=== PATIENT | female | born 1980 ===

== ENCOUNTER 2020-06-14 12:09 | Outpatient (REF) | payer OTHER, SELFPAY ==
[2020-06-15 07:19] LABS: COVID-19 Test Negative (Negative); IDNOW Serial# 55D5AD1C
== END 2020-06-14 12:10 | disposition home or self-care (01) ==
LOC: HO.EMPCOV 12:09
PROVIDERS: Visit Provider Internal Medicine
DX: Z11.52 Encounter for screening for COVID-19 (principal)
CPT/HCPCS: 36415; 87635; C9803

== ENCOUNTER → 2020-06-24 10:40 | Outpatient (BNVA) | payer OTHER, SELFPAY | PROVIDERS: PCP Physician Assistant; Visit Provider Physician Assistant ==

== ENCOUNTER 2020-07-01 09:02 | Outpatient (REF) | payer OTHER, SELFPAY ==
[2020-07-01 09:37] LABS: Hematocrit 39.6 % (37-47); Hemoglobin 12.9 g/dl (12.0-16.0); Mean Corpuscular HGB Conc 32.6 g/dl (31.0-35.0); Mean Corpuscular Hemoglobin 27.6 pg (27.0-33.0); Mean Corpuscular Volume 84.6 fL (80-98); Mean Platelet Volume 10.1 fL (9.4-12.3); Platelet Count 289 X10*3/uL (160-400); Red Blood Count 4.68 X10*6/uL (4.20-5.50); Red Cell Distribution Width 13.9 % (11.0-16.0); White Blood Count 7.9 X10*3/uL (4.8-10.8)
[2020-07-01 09:50] LABS: Alanine Aminotransferase 12 U/L (0-31); Albumin Level 4.1 g/dL (3.5-5.0); Alkaline Phosphatase 72 U/L (39-117); Anion Gap 13 (12-20); Aspartate Amino Transferase 9 U/L (5-31); Bilirubin Total 0.6 mg/dL (0.0-1.0); Blood Urea Nitrogen 9 mg/dL (9-16); Calcium 9.2 mg/dL (8.4-10.2); Carbon Dioxide 25 mmol/L (22-29); Chloride 108 mmol/L (96-108); Cholesterol 149 mg/dL; Estimated Glomerular Filt Rate > 60; Glucose Fasting 97 mg/dL (60-99); HDL Cholesterol 50 mg/dL; Iron 68 mcg/dL (30-160); LDL Cholesterol Calculated 87 mg/dl; Percent Iron Saturation 17 % (15-50); Potassium 4.5 mmol/L (3.3-5.1); Rheumatoid Factor < 15.0 IU/mL (<15.0); Sodium 141 mmol/L (135-145); Total Iron Binding Capacity 389 mcg/dL (228-428); Triglycerides 64 mg/dL; Unsaturated Iron Binding 321 ug/dL
[2020-07-01 09:58] LABS: Estimated Average Glucose 105 mg/dL; Hemoglobin A1c % 5.3 %
[2020-07-01 10:14] LABS: Vitamin D 25-OH Total 8.8 ng/mL (>30)
[2020-07-03 13:21] LABS: Anti Nuclear Antibody Screen NEGATIVE (NEGATIVE)
[2020-07-06 17:52] LABS: Testosterone, Free 5.2 pg/mL (0.1-6.4); Testosterone, Total 38 ng/dL (2-45)
[2020-07-07 14:16] LABS: Estradiol, Ultrasensitive 213 pg/mL
[2020-07-07 17:06] LABS: Estrogen 680.4 pg/mL
== END 2020-07-01 09:03 | disposition home or self-care (01) ==
LOC: HO.LAB 09:02
PROVIDERS: Visit Provider Physician Assistant
DX: Z13.220 Encounter for screening for lipoid disorders (principal); Z13.29 Encounter for screening for other suspected endocrine disorder; L68.0 Hirsutism; E66.9 Obesity, unspecified; I10 Essential (primary) hypertension; D50.9 Iron deficiency anemia, unspecified; Z83.2 Family history of diseases of the blood and blood-forming organs and certain disorders involving the immune mechanism
CPT/HCPCS: 36415; 80053; 80061; 82306; 82670; 82672; 82681; 83001; 83002; 83036; 83540; 84402; 84403; 84443; 85027; 86038; 86039; 86431

== ENCOUNTER 2020-08-22 10:27 | Outpatient (REF) | payer OTHER, SELFPAY ==
--- NOTE | ~2020-08-22 | US_ITS ---
EXAMINATION: US THYROID CLINICAL INFORMATION: Nontoxic single thyroid nodule. COMPARISON: Ultrasound thyroid soft tissue 10/05/2016. TECHNIQUE: Linear transducer guzman-scale and color Doppler examination with attention to the region of the thyroid. FINDINGS: SIZE: Measurements of the thyroid lobes and nodules are given in sagittal, anteroposterior and transverse dimensions respectively. Right Thyroid Lobe: 6.3 x 2.3 x 2.3 cm, volume 17.3 mL. Previously 4.8 x 2.1 x 2.3 cm, volume 12.1 mL. Parenchyma: The gland echotexture is heterogeneous. Thyroid vascularity is normal. Left Thyroid Lobe: 6.0 x 1.7 x 2.3 cm, volume 12.1 mL. Previously 5.3 x 1.9 x 2.0 cm, volume 10.3 mL. Parenchyma: The gland echotexture is heterogeneous. Thyroid vascularity is normal. Isthmus: 0.4 cm in maximum AP dimension. Previously 0.6 cm. Estimated total number of nodules greater than or equal to 1 cm: 0. Reconditioning Associate nodules are described as follows: 1. Location: Right inferior. Size: 0.5 x 0.4 x 0.3 cm, volume 0.03 mL. Previously: 0.5 x 0.5 x 0.4 cm, volume 0.05 mL. Nodule characteristics: Composition: Cystic(0). ACR TI-RADS total points: 0 ACR TI-RADS category: 1 Significant change in size (>/= 20% in 2 dimensions and minimal increase of 2 mm or 50% or greater increase in volume): Change in features: Change in ACR TI-RADS risk category: n/a 2. Location: Right inferior. Size: 0.4 x 0.4 x 0.4 cm, volume 0.03 mL. Previously: 0.4 x 0.5 x 0.4 cm, volume 0.04 mL. Nodule characteristics: Composition: Cystic(0). ACR TI-RADS total points: 0 ACR TI-RADS category: 1 Significant change in size (>/= 20% in 2 dimensions and minimal increase of 2 mm or 50% or greater increase in volume): Change in features: Change in ACR TI-RADS risk category: n/a 3. Location: Right inferior. Size: 0.4 x 0.4 x 0.2 cm, volume 0.03 mL. Previously: 0.3 x 0.3 x 0.3 cm, volume 0.01 mL. Nodule characteristics: Composition: Cystic(0). ACR TI-RADS total points: 0 ACR TI-RADS category: 1 Significant change in size (>/= 20% in 2 dimensions and minimal increase of 2 mm or 50% or greater increase in volume): Change in features: Change in ACR TI-RADS risk category: n/a 4. Location: Left mid Size: 0.4 x 0.4 x 0.3 cm, volume 0.03 mL. Previously: 1.2 x 0.6 x 1.0 cm, volume 0.04 mL. Nodule characteristics: Composition: Cystic(0). ACR TI-RADS total points: 0 ACR TI-RADS category: 1 Significant change in size (>/= 20% in 2 dimensions and minimal increase of 2 mm or 50% or greater increase in volume): Change in features: Change in ACR TI-RADS risk category: n/a 5. Location: Left superior. Size: 0.3 x 0.3 x 0.2 cm, volume 0.009 mL. Previously: n/a. Nodule characteristics: Composition: Cystic(0). ACR TI-RADS total points: 0 ACR TI-RADS category: 1 NODES: No lymphadenopathy is seen in the tissue surrounding the thyroid gland. US/US thyroid IMPRESSION: Enlarged heterogeneous thyroid gland with multiple small bilateral nodules. These do not meet ultrasound criteria for fine-needle aspiration or follow-up.. ACR TI-RADS RECOMMENDATION REFERENCE: Ultrasound-guided fine-needle aspiration, followup ultrasound, no further follow up. * TR1 (0 point) and TR 2 (2 points): No FNA or follow up * TR3 (3 points): FNA if more than or equal to 2.5 cm in maximum dimension, followup ultrasound in 1, 3 and 5 years if 1.5 to 2.4 cm in maximum dimension. * TR4 (4-6 points): FNA if more than or equal to 1.5 cm in maximum dimension, followup ultrasound in 1, 2, 3 and 5 years if 1 to 1.4 cm in maximum dimension. * TR5 (more than or equal to 7 points): FNA if more than or equal to 1 cm in maximum dimension, followup ultrasound every year for 5 years if 0.5 to 0.9 cm in maximum dimension. * TR3, TR4 or TR5 nodules that are below the size threshold for follow up receive no follow up.
--- NOTE | ~2020-08-22 | XR_ITS ---
EXAMINATION: XR KNEE, RIGHT XR KNEE, LEFT CLINICAL INFORMATION: Pain. COMPARISON: None TECHNIQUE: AP, lateral, and sunrise views of the right and left knee. FINDINGS: RIGHT KNEE: No acute fracture or dislocation. No joint space narrowing or marginal osteophytes. No osseous erosion. No abnormal soft tissue calcification. No significant joint effusion. LEFT KNEE: No acute fracture or dislocation. No significant joint space narrowing. Tiny patellofemoral marginal osteophytes. No osseous erosion. No abnormal soft tissue calcification. No significant joint effusion. XR/XR knee LT 3V IMPRESSION: Right knee: Unremarkable examination. Left knee: Minimal patellofemoral arthrosis.
--- NOTE | ~2020-08-22 | XR_ITS ---
EXAMINATION: XR KNEE, RIGHT XR KNEE, LEFT CLINICAL INFORMATION: Pain. COMPARISON: None TECHNIQUE: AP, lateral, and sunrise views of the right and left knee. FINDINGS: RIGHT KNEE: No acute fracture or dislocation. No joint space narrowing or marginal osteophytes. No osseous erosion. No abnormal soft tissue calcification. No significant joint effusion. LEFT KNEE: No acute fracture or dislocation. No significant joint space narrowing. Tiny patellofemoral marginal osteophytes. No osseous erosion. No abnormal soft tissue calcification. No significant joint effusion. XR/XR knee RT 3V IMPRESSION: Right knee: Unremarkable examination. Left knee: Minimal patellofemoral arthrosis.
== END 2020-08-22 10:28 | disposition home or self-care (01) ==
LOC: HO.US 10:27
PROVIDERS: Visit Provider Physician Assistant
DX: E04.1 Nontoxic single thyroid nodule (principal); M25.562 Pain in left knee; M25.561 Pain in right knee
CPT/HCPCS: 73562; 76536

== ENCOUNTER → 2020-08-23 08:53 | Outpatient (BNVA) | payer OTHER, SELFPAY | PROVIDERS: PCP Physician Assistant; Visit Provider Internal Medicine Endocrinology, Diabetes & Metabolism ==

== ENCOUNTER 2020-08-24 09:01 | Outpatient (REF) | payer OTHER, SELFPAY | END 2020-08-24 09:02 | disposition home or self-care (01) | LOC: HO.LAB 09:01 | PROVIDERS: PCP Physician Assistant; Visit Provider Internal Medicine Endocrinology, Diabetes & Metabolism | DX: Z13.89 Encounter for screening for other disorder (principal) ==

== ENCOUNTER 2020-08-26 08:36 | Outpatient (REF) | payer OTHER, SELFPAY ==
[2020-08-26 10:08] LABS: Free T4 (Free Thyroxine) 0.93 ng/dL (0.71-1.85); Thyroid Stimulating Hormone 0.81 uIU/mL (0.32-4.0)
[2020-08-29 13:12] LABS: IGF-1 (Somatomedin C) 155 ng/mL (53-331); IGF-1 Z Score (Female) 0.2 SD (-2.0 - +2.0)
[2020-08-29 14:52] LABS: Thyroglobulin Antibodies 432 IU/mL (< or = 1); Thyroid Peroxidase Antibodies 1 IU/mL (<9)
[2020-08-29 22:06] LABS: Adrenocorticotropic Hormone 12 pg/mL (6-50)
[2020-08-30 18:11] LABS: Prolactin 10.7 ng/mL
[2020-08-30 18:56] LABS: DHEA Sulfate 89 mcg/dL (23-266); Sex Hormone Binding Globulin 27 nmol/L (17-124)
[2020-08-31 22:27] LABS: Androstenedione 166 ng/dL
[2020-09-02 18:31] LABS: Testosterone, Free 3.4 pg/mL (0.1-6.4); Testosterone, Total 22 ng/dL (2-45)
[2020-09-02 20:56] LABS: 11-Deoxycortisol, LC/MS 21 ng/dL
== END 2020-08-26 08:37 | disposition home or self-care (01) ==
LOC: HO.LAB 08:36
PROVIDERS: PCP Physician Assistant; Visit Provider Internal Medicine Endocrinology, Diabetes & Metabolism
DX: E04.2 Nontoxic multinodular goiter (principal); L68.0 Hirsutism
CPT/HCPCS: 36415; 82024; 82157; 82533; 82627; 82634; 82672; 83498; 84146; 84270; 84305; 84402; 84403; 84439; 84443; 86376; 86800

== ENCOUNTER 2020-09-07 07:33 | Outpatient (REF) | payer OTHER, SELFPAY ==
[2020-09-08 22:41] LABS: Adrenocorticotropic Hormone <5 pg/mL (6-50)
[2020-09-14 12:03] LABS: Dexamethasone 214 ng/dL
== END 2020-09-07 07:34 | disposition home or self-care (01) ==
LOC: HO.LAB 07:33
PROVIDERS: PCP Physician Assistant; Visit Provider Internal Medicine Endocrinology, Diabetes & Metabolism
DX: L68.0 Hirsutism (principal)
CPT/HCPCS: 36415; 80299; 82024; 82533

== ENCOUNTER 2020-09-08 23:00 | Outpatient (REF) | payer OTHER, SELFPAY ==
[2020-09-17 16:12] LABS: Saliva Cortisol <0.03 mcg/dL
== END 2020-09-08 23:01 | disposition home or self-care (01) ==
LOC: HO.LNP 23:00
PROVIDERS: Visit Provider Internal Medicine Endocrinology, Diabetes & Metabolism
DX: E66.9 Obesity, unspecified (principal); E04.1 Nontoxic single thyroid nodule; K21.9 Gastro-esophageal reflux disease without esophagitis; L68.0 Hirsutism
CPT/HCPCS: 82530

== ENCOUNTER → 2021-02-13 09:26 | Outpatient (BNVA) | payer OTHER, SELFPAY | PROVIDERS: PCP Physician Assistant; Visit Provider Internal Medicine ==

== ENCOUNTER 2021-02-14 06:50 | Outpatient (REF) | payer OTHER, SELFPAY ==
[2021-02-14 08:37] LABS: Glucose Fasting 101 mg/dL (60-99)
[2021-02-14 08:40] LABS: Alanine Aminotransferase 12 U/L (0-31); Albumin Level 4.1 g/dL (3.5-5.0); Alkaline Phosphatase 68 U/L (39-117); Anion Gap 11 (12-20); Aspartate Amino Transferase 11 U/L (5-31); Bilirubin Total 0.4 mg/dL (0.0-1.0); Blood Urea Nitrogen 9 mg/dL (9-16); Calcium 9.3 mg/dL (8.4-10.2); Carbon Dioxide 25 mmol/L (22-29); Chloride 107 mmol/L (96-108); Cholesterol 167 mg/dL; Estimated Glomerular Filt Rate > 60; Glucose Random 102 mg/dL (60-115); HDL Cholesterol 53 mg/dL; LDL Cholesterol Calculated 97 mg/dl; Potassium 4.3 mmol/L (3.3-5.1); Sodium 139 mmol/L (135-145); Total Protein 7.1 g/dL (6.5-8.0); Triglycerides 86 mg/dL
[2021-02-14 08:50] LABS: Estimated Average Glucose 105 mg/dL; Hemoglobin A1c % 5.3 %
[2021-02-14 09:03] LABS: Free T4 (Free Thyroxine) 0.94 ng/dL (0.71-1.85); Thyroid Stimulating Hormone 0.84 uIU/mL (0.32-4.0); Vitamin D 25-OH Total 8.3 ng/mL (>30)
[2021-02-14 09:10] LABS: Glucose 1 Hour 178 mg/dL
[2021-02-14 09:15] LABS: HCG Quantitative < 2 mIU/mL
[2021-02-14 10:30] LABS: Glucose 2 Hour 155 mg/dL
[2021-02-16 02:02] LABS: LDL Cholesterol Direct 100 mg/dL (<100)
[2021-02-16 02:57] LABS: DHEA Sulfate 69 mcg/dL (23-266); Sex Hormone Binding Globulin 27 nmol/L (17-124)
[2021-02-16 17:46] LABS: Follicle Stimulating Hormone 4.3 mIU/mL; Prolactin 9.8 ng/mL
[2021-02-17 00:36] LABS: Estradiol Ultra Sensitive 92 pg/mL
[2021-02-20 18:47] LABS: Testosterone, Free 8.4 pg/mL (0.1-6.4); Testosterone, Total 62 ng/dL (2-45)
[2021-02-20 19:15] LABS: Androstenedione 217 ng/dL
[2021-02-25 22:31] LABS: Estradiol Free 2.54 pg/mL; Estradiol, Ultrasensitive 92 pg/mL
== END 2021-02-14 06:51 | disposition home or self-care (01) ==
LOC: HO.LAB 06:50
PROVIDERS: PCP Physician Assistant; Visit Provider Internal Medicine
DX: L68.0 Hirsutism (principal); E55.9 Vitamin D deficiency, unspecified; E04.2 Nontoxic multinodular goiter
CPT/HCPCS: 36415; 80053; 80061; 82157; 82306; 82627; 82670; 82681; 83001; 83002; 83036; 83498; 83721; 84146; 84270; 84402; 84403; 84439; 84443; 84702

== ENCOUNTER 2021-03-09 09:17 | Outpatient (REF) | payer OTHER, SELFPAY ==
--- NOTE | ~2021-03-09 | CT_ITS ---
EXAMINATION: CT ABDOMEN WITHOUT AND WITH CONTRAST CLINICAL INFORMATION: Ovarian dysfunction COMPARISON: None TECHNIQUE: Contiguous axial thin section helical images of the abdomen were performed before and after the administration of oral contrast and 85 mL of Omnipaque 350 intravenous contrast. The data set was reformatted in the coronal and sagittal planes and reviewed on an independent workstation. This CT examination was performed using dose optimization techniques as appropriate, variously including the following: *Automated exposure control *Adjustment of mA and/or kV according to patient size (this includes techniques or standardized protocols for targeted exams where dose is matched to indication/reason for exam; i.e. extremities or head) *Use of iterative reconstruction technique DLP: 571 mGy-cm FINDINGS: LUNG BASES: Unremarkable LIVER, GALLBLADDER, AND BILIARY TREE: There is a small 5 mm low-attenuation lesion in the right lobe the liver axial image 40 series 6. This is difficult to characterize due to small size. The liver is otherwise unremarkable. The gallbladder is unremarkable. There is no biliary duct dilatation. PANCREAS: Unremarkable SPLEEN: Unremarkable ADRENAL GLANDS AND KIDNEYS: Unremarkable BOWEL LOOPS: Unremarkable LYMPH NODES: Normal. VASCULAR: Unremarkable. BONES: Unremarkable CT/CT abdomen wo/w con IMPRESSION: Normal-appearing adrenal glands. Small 5 mm low-attenuation lesion in the liver. This is difficult to characterize due to small size. Fleischner guidelines were followed.
[2021-03-09] MEDS: iohexoL 350 MG/ML 100 ML INFUS..BTL IV (10:41)
== END 2021-03-09 09:18 | disposition home or self-care (01) ==
LOC: HO.CT 09:17
PROVIDERS: Visit Provider Internal Medicine
DX: E28.8 Other ovarian dysfunction (principal)
CPT/HCPCS: 74170; Q9967

== ENCOUNTER 2021-03-17 08:49 | Outpatient (REF) | payer OTHER, SELFPAY ==
[2021-03-21 08:52] LABS: Transglutaminase Ab IgG <1.0 U/mL; Transglutaminase IgA <1.0 U/mL
[2021-09-14 09:16] LABS: Prometheus IBD SGI SEE SEPARATE REPORT
== END 2021-03-17 08:50 | disposition home or self-care (01) ==
LOC: HO.LAB 08:49
PROVIDERS: PCP Internal Medicine; Referring Provider Internal Medicine; Visit Provider Nurse Practitioner Family
DX: R10.11 Right upper quadrant pain (principal); R14.0 Abdominal distension (gaseous); K58.9 Irritable bowel syndrome, unspecified; K21.9 Gastro-esophageal reflux disease without esophagitis; R16.0 Hepatomegaly, not elsewhere classified
CPT/HCPCS: 36415; 81479; 82397; 83516; 83520; 86140; 88346; 88350

== ENCOUNTER 2021-04-11 08:01 | Outpatient (REF) | payer OTHER, SELFPAY | END 2021-04-11 08:02 | disposition home or self-care (01) | LOC: HO.LAB 08:01 | PROVIDERS: Visit Provider Internal Medicine | DX: Z13.89 Encounter for screening for other disorder (principal) ==

== ENCOUNTER → 2021-05-17 07:51 | Outpatient (BNVA) | payer OTHER, SELFPAY | PROVIDERS: PCP Internal Medicine; Visit Provider Internal Medicine ==

== ENCOUNTER 2021-06-01 08:03 | Outpatient (REF) | payer OTHER, SELFPAY ==
[2021-06-02 22:46] LABS: Cortisol 60 Minute 32.5 mcg/dL
== END 2021-06-01 08:04 | disposition home or self-care (01) ==
LOC: HO.MDS 08:03
PROVIDERS: PCP Internal Medicine; Visit Provider Internal Medicine
DX: E25.0 Congenital adrenogenital disorders associated with enzyme deficiency (principal)
CPT/HCPCS: 36415; 82533; 83498; 96374; J0834

== ENCOUNTER → 2021-08-28 13:15 | Outpatient (BNVA) | payer OTHER, SELFPAY | PROVIDERS: PCP Internal Medicine; Visit Provider Internal Medicine | DX: E28.8 Other ovarian dysfunction (principal) ==

== ENCOUNTER 2021-08-30 07:13 | Outpatient (REF) | payer OTHER, SELFPAY ==
[2021-08-30 08:04] LABS: Alanine Aminotransferase 8 U/L (0-31); Albumin Level 3.7 g/dL (3.5-5.0); Alkaline Phosphatase 57 U/L (39-117); Anion Gap 10 (12-20); Aspartate Amino Transferase 10 U/L (5-31); Bilirubin Total 0.4 mg/dL (0.0-1.0); Blood Urea Nitrogen 11 mg/dL (9-16); Calcium 9.4 mg/dL (8.4-10.2); Carbon Dioxide 27 mmol/L (22-29); Chloride 106 mmol/L (96-108); Estimated Glomerular Filt Rate > 60; Glucose Fasting 101 mg/dL (60-99); Potassium 4.6 mmol/L (3.3-5.1); Sodium 138 mmol/L (135-145); Total Protein 6.8 g/dL (6.5-8.0)
[2021-08-30 08:26] LABS: Free T4 (Free Thyroxine) 0.95 ng/dL (0.71-1.85); Thyroid Stimulating Hormone 0.84 uIU/mL (0.32-4.0); Vitamin D 25-OH Total 19.7 ng/mL (>30)
[2021-08-30 08:30] LABS: Cortisol Random 18.1 ug/dL
[2021-08-31 21:46] LABS: Adrenocorticotropic Hormone 7 pg/mL (6-50)
[2021-09-01 01:26] LABS: DHEA Sulfate 71 mcg/dL (19-237)
[2021-09-01 01:53] LABS: Sex Hormone Binding Globulin 161 nmol/L (17-124)
[2021-09-03 16:12] LABS: Testosterone, Free 1.2 pg/mL (0.1-6.4); Testosterone, Total 21 ng/dL (2-45)
== END 2021-08-30 07:14 | disposition home or self-care (01) ==
LOC: HO.LAB 07:13
PROVIDERS: PCP Internal Medicine; Visit Provider Internal Medicine
DX: E55.9 Vitamin D deficiency, unspecified (principal); E28.8 Other ovarian dysfunction
CPT/HCPCS: 36415; 80053; 82024; 82306; 82533; 82627; 84270; 84402; 84403; 84439; 84443

== ENCOUNTER 2021-10-10 07:11 | Outpatient (REF) | payer OTHER, SELFPAY ==
[2021-10-10 08:25] LABS: Alanine Aminotransferase 8 U/L (0-31); Albumin Level 3.8 g/dL (3.5-5.0); Alkaline Phosphatase 59 U/L (39-117); Anion Gap 10 (12-20); Aspartate Amino Transferase 11 U/L (5-31); Bilirubin Total 0.4 mg/dL (0.0-1.0); Blood Urea Nitrogen 11 mg/dL (9-16); Carbon Dioxide 26 mmol/L (22-29); Chloride 108 mmol/L (96-108); Cholesterol 164 mg/dL; Estimated Glomerular Filt Rate > 60; Glucose Fasting 89 mg/dL (60-99); HDL Cholesterol 50 mg/dL; LDL Cholesterol Calculated 84 mg/dl; Potassium 4.3 mmol/L (3.3-5.1); Sodium 140 mmol/L (135-145); Total Protein 6.7 g/dL (6.5-8.0); Triglycerides 153 mg/dL
[2021-10-10 08:41] LABS: Free T4 (Free Thyroxine) 1.07 ng/dL (0.71-1.85); Thyroid Stimulating Hormone 0.42 uIU/mL (0.32-4.0); Vitamin D 25-OH Total 25.5 ng/mL (>30)
[2021-10-10 08:42] LABS: Thyroid Stimulating Hormone 0.45 uIU/mL (0.32-4.0); Vitamin D 25-OH Total 25.1 ng/mL (>30)
== END 2021-10-10 07:12 | disposition home or self-care (01) ==
LOC: HO.LAB 07:11
PROVIDERS: Internal Medicine; PCP Internal Medicine; Visit Provider Internal Medicine
DX: Z00.00 Encounter for general adult medical examination without abnormal findings (principal); E04.2 Nontoxic multinodular goiter; E55.9 Vitamin D deficiency, unspecified; E78.5 Hyperlipidemia, unspecified
CPT/HCPCS: 36415; 80053; 80061; 82306; 84439; 84443

== ENCOUNTER 2021-10-18 07:34 | Outpatient (REF) | payer OTHER, SELFPAY ==
--- NOTE | ~2021-10-18 | MM_ITS ---
EXAMINATION: MM SCREENING DIGITAL BREAST TOMOSYNTHESIS, BILATERAL CLINICAL INFORMATION: Screening. Asymptomatic. The age 41. No prior breast imaging. No known family history breast cancer. The lifetime risk of breast cancer based on the Tyrer-Cuzick Model is 8%. COMPARISON: None (current study represents initial baseline exam). TECHNIQUE: Digital breast tomosynthesis is performed in both the craniocaudal and mediolateral oblique views along with computer-aided detection (CAD). Synthesized 2D images are generated from the tomosynthesis. Additional bilateral views are provided. FINDINGS: The breasts are extremely dense, which lowers the sensitivity of mammography (ACR BI-RADS breast composition Category d). Breast tissue composition borders on heterogeneously dense. There is fibronodular parenchymal pattern. There is no architectural abnormality. No dominant mass on the right. Left breast probable fibrocystic changes with dominant smooth nodularity with obscured margins central breast approximately 4 cm from nipple measuring under 1.3 cm. As this represents baseline exam, patient will be recalled for targeted ultrasound on the left. There are numerous bilateral punctate round benign calcifications within the lesion distributed, greater in number on the left. The axilla and skin contours are unremarkable. MM/MM tomosynthesis screening BI IMPRESSION: Left: -Probable fibrocystic changes with dominant nodule central breast approximately 1.3 cm. Right: -No mammographic evidence of malignancy. ASSESSMENT: BI-RADS 0: Incomplete - Need Additional Imaging Evaluation RECOMMENDATION: 1. Targeted ultrasound left breast. 2. Radiology department staff will contact the patient for additional imaging. This patient's information was entered into a reminder system with a target due date for their next mammogram.
== END 2021-10-18 07:35 | disposition home or self-care (01) ==
LOC: HO.MAMMO 07:34
PROVIDERS: PCP Internal Medicine; Visit Provider Internal Medicine
DX: Z12.31 Encounter for screening mammogram for malignant neoplasm of breast (principal)
CPT/HCPCS: 77063; 77067

== ENCOUNTER 2021-11-07 08:20 | Outpatient (REF) | payer OTHER, SELFPAY ==
--- NOTE | ~2021-11-07 | US_ITS ---
EXAMINATION: US DIAGNOSTIC ULTRASOUND BREAST, LEFT CLINICAL INFORMATION: Probable fibrocystic changes central left breast noted on baseline mammography. COMPARISON: Mammography 10/18/2021. TECHNIQUE: Ultrasound left breast is performed with interrogation from all 4 quadrants. Grayscale imaging and color Doppler are performed without and with harmonics. FINDINGS: There are numerous benign simple cysts distributed throughout the central left breast ranging in size from a few millimeters to 1.7 cm. There is no focal suspicious finding. There is no solid mass, complicated cystic mass, or architectural abnormality. Results are discussed with the patient at time of visit. US/US breast LT limited IMPRESSION: Benign fibrocystic changes left breast numerous simple cysts measuring up to approximately 1.7 cm. ASSESSMENT: BI-RADS 2: Benign RECOMMENDATION: Routine annual mammography screening. This patient's information was entered into a reminder system with a target due date for their next mammogram.
== END 2021-11-07 08:21 | disposition home or self-care (01) ==
LOC: HO.MAMMO 08:20
PROVIDERS: PCP Internal Medicine; Visit Provider Internal Medicine
DX: N63.25 Unspecified lump in the left breast, overlapping quadrants (principal)
CPT/HCPCS: 76642

== ENCOUNTER 2022-01-06 14:35 | Outpatient (REF) | payer BC, SELFPAY ==
[2022-01-06 15:33] LABS: Estimated Average Glucose 100 mg/dL; Hemoglobin A1c % 5.1 %
[2022-01-06 15:35] LABS: Alanine Aminotransferase 13 U/L (0-31); Alkaline Phosphatase 61 U/L (39-117); Anion Gap 14 (12-20); Aspartate Amino Transferase 18 U/L (5-31); Bilirubin Total 0.5 mg/dL (0.0-1.0); Blood Urea Nitrogen 14 mg/dL (9-16); Calcium 8.9 mg/dL (8.4-10.2); Carbon Dioxide 25 mmol/L (22-29); Chloride 108 mmol/L (96-108); Estimated Glomerular Filt Rate > 60; Glucose Random 105 mg/dL (60-115); Potassium 3.6 mmol/L (3.3-5.1); Sodium 143 mmol/L (135-145); Total Protein 6.5 g/dL (6.5-8.0)
[2022-01-06 15:59] LABS: Free T4 (Free Thyroxine) 1.12 ng/dL (0.71-1.85); HCG Quantitative < 2 mIU/mL; Thyroid Stimulating Hormone 0.61 uIU/mL (0.32-4.0)
[2022-01-06 16:17] LABS: Cortisol Random 7.3 ug/dL
[2022-01-06 16:31] LABS: Vitamin D 25-OH Total 15.2 ng/mL (>30)
[2022-01-11 12:06] LABS: Androstenedione 65 ng/dL
[2022-01-11 22:07] LABS: Estradiol Ultra Sensitive 22 pg/mL
[2022-01-12 09:03] LABS: DHEA Sulfate 82 mcg/dL (19-237); Follicle Stimulating Hormone 7.1 mIU/mL; Lutenizing Hormone 6.5 mIU/mL; Prolactin 8.8 ng/mL; Sex Hormone Binding Globulin 27 nmol/L (17-124)
[2022-01-13 18:37] LABS: Testosterone, Free 2.8 pg/mL (0.1-6.4); Testosterone, Total 20 ng/dL (2-45)
== END 2022-01-06 14:36 | disposition home or self-care (01) ==
LOC: HO.HMGCLDS 14:35
PROVIDERS: PCP Internal Medicine; Visit Provider Internal Medicine
DX: E28.8 Other ovarian dysfunction (principal); E04.2 Nontoxic multinodular goiter; E55.9 Vitamin D deficiency, unspecified
CPT/HCPCS: 36415; 80053; 82157; 82306; 82533; 82627; 82670; 83001; 83002; 83036; 83498; 84146; 84270; 84402; 84403; 84439; 84443; 84702

== ENCOUNTER → 2022-06-07 13:07 | Outpatient (BNVA) | payer BC, SELFPAY | PROVIDERS: PCP Pediatrics; Visit Provider Internal Medicine | DX: Z13.89 Encounter for screening for other disorder (principal) ==

== ENCOUNTER 2022-06-16 07:28 | Outpatient (REF) | payer BC, SELFPAY ==
[2022-06-16 08:23] LABS: Estimated Average Glucose 105 mg/dL; Hemoglobin A1c % 5.3 %
[2022-06-16 08:50] LABS: Alanine Aminotransferase 9 U/L (0-31); Alkaline Phosphatase 65 U/L (39-117); Anion Gap 10 (12-20); Aspartate Amino Transferase 11 U/L (5-31); Bilirubin Total 0.5 mg/dL (0.0-1.0); Blood Urea Nitrogen 11 mg/dL (9-16); Calcium 9.2 mg/dL (8.4-10.2); Carbon Dioxide 25 mmol/L (22-29); Chloride 106 mmol/L (96-108); Estimated Glomerular Filt Rate > 60; Glucose Random 96 mg/dL (60-115); Potassium 4.4 mmol/L (3.3-5.1); Sodium 137 mmol/L (135-145); Total Protein 6.9 g/dL (6.5-8.0)
[2022-06-16 08:54] LABS: Cortisol Random 5.1 ug/dL
[2022-06-16 09:15] LABS: Free T4 (Free Thyroxine) 0.93 ng/dL (0.71-1.85); HCG Quantitative < 2 mIU/mL; Thyroid Stimulating Hormone 0.39 uIU/mL (0.32-4.0)
[2022-06-16 09:58] LABS: Vitamin D 25-OH Total 33.4 ng/mL (>30)
[2022-06-18 11:20] LABS: DHEA Sulfate 79 mcg/dL (15-205); Follicle Stimulating Hormone 3.9 mIU/mL; Lutenizing Hormone 9.6 mIU/mL; Prolactin 9.5 ng/mL; Sex Hormone Binding Globulin 32 nmol/L (17-124)
[2022-06-21 14:58] LABS: Androstenedione 182 ng/dL
[2022-06-22 05:09] LABS: Adrenocorticotropic Hormone 8 pg/mL (6-50)
[2022-06-22 15:44] LABS: Testosterone, Free 5.4 pg/mL (0.1-6.4); Testosterone, Total 40 ng/dL (2-45)
[2022-06-23 20:48] LABS: Estradiol Ultra Sensitive 89 pg/mL
== END 2022-06-16 07:29 | disposition home or self-care (01) ==
LOC: HO.LAB 07:28
PROVIDERS: PCP Nurse Practitioner Family; Visit Provider Internal Medicine
DX: R73.02 Impaired glucose tolerance (oral) (principal); E55.9 Vitamin D deficiency, unspecified; E28.8 Other ovarian dysfunction; E28.1 Androgen excess; E04.2 Nontoxic multinodular goiter
CPT/HCPCS: 36415; 80053; 82024; 82157; 82306; 82533; 82627; 82670; 83001; 83002; 83036; 83498; 84146; 84270; 84402; 84403; 84439; 84443; 84702

== ENCOUNTER 2023-04-22 14:23 | Outpatient (AMB) | payer BC, SELFPAY ==
--- NOTE | 2023-04-22 14:30 | A.OFFVIS_ITS ---
Intake Vital Signs 04/22/23 14:33 Height 5 ft 4 in Weight 204 lb 5.896 oz BMI 35.1 BP 120/76 Blood Pressure Location Lt brachial Position Sitting Pulse 98 Pulse Source Pulse Oximeter Intake Visit Reasons: PCOS-confirmed Intake Note: Patient present today for PCOS follow up visit. Last seen 06/07/[address] Lockwood. Foreign Banknote Teller Required: No Accompanied by: Self / Same As Patient Allergies No Known Allergies Allergy (Verified 04/22/23 14:39) Medication List - Last Reconciled 04/22/23 by Zachery Farmer MD cholecalciferol (vitamin D3) 50 mcg PO DAILY 30 days ibuprofen 800 mg PO Q8H PRN omega 3-uvc-cgf-fish oil 60-90-500 mg (Fish Oil) 1 cap PO DAILY HPI HPI Comments History of Present Illness Details 42 YO Female with no significant PMHx who is seen in F/U for hyperandrogenism.. The patient last saw Dr. Lockwood on 06/07/2022 She was previously followed by Dr. Jean and underwent a partial workup. She was ruled out for kayli's disease with a normal 1 mg overnight DSST. Her 17OHP was slightly elevated at >200. She has not had a stim test to rule out NCCAH. She was scheduled for this but it was completed incorrectly, solely as a cosyntropin stim test for cortisol, which was WNL. After her initial visit with me we repeated a full biochemical panel. This revealed elevated both free and total testosterone, and a boerline 17OHP level of 161. She completed another 1 mg overnight DSST which was WNL, ruling out kayli's disease. She had a CT of the abdomen which revealed a 5 mm lesion within the liver, but the adrenal glands appeared WNL. She also had an US of the ovaries, which revealed multiple bilateral follicles, in a picture consistent with PCOS. She had a 2 hour OGTT which revealed prediabetes. She was started on Metformin, but was unable to tolerate this at 500 mg PO BID of the XR tab, due to GI distress. She was switched Ozempic and is currently using 0.5 mg once a week. She does report significant reduction in weight. She saw her DRYING ROOM ATTENDANT and was started on OCP ALYSA, which she reports has normalized her menses. She then stopped this in order to repeat her labs and did not resume this. Menarche was age 15. Menses have been irregular since the of her second son, coming often twice within a 30 day period. Weight gain: Does complain of weight gain. Hirsutism/hyperandrogenism: Complains of hirsutism of the face and areolas. Trying to conceive/clomiphene: Has 2 children and had no difficulty conceiving. 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 TSH has remained WNL off any LT4. She was found to have low Vitamin D. She has completed high dose replacement and remains on Vitamin D 2000 IU daily now. Thyroid US: 08/22/2020 Right Thyroid Lobe: 6.3 x 2.3 x 2.3 cm, volume 17.3 mL. Previously 4.8 x 2.1 x 2.3 cm, volume 12.1 mL. Parenchyma: The gland echotexture is heterogeneous. Thyroid vascularity is normal. Left Thyroid Lobe: 6.0 x 1.7 x 2.3 cm, volume 12.1 mL. Previously 5.3 x 1.9 x 2.0 cm, volume 10.3 mL. Parenchyma: The gland echotexture is heterogeneous. Thyroid vascularity is normal. Isthmus: 0.4 cm in maximum AP dimension. Previously 0.6 cm. Estimated total number of nodules greater than or equal to 1 cm: 0. Strapper Operator nodules are described as follows: 1.? Location: Right inferior. ?? ? Size: 0.5 x 0.4 x 0.3 cm, volume 0.03 mL. ?? ? Previously: 0.5 x 0.5 x 0.4 cm, volume 0.05 mL. ?? ? Nodule characteristics: ?? ? Composition: Cystic(0). ?? ? ACR TI-RADS total points: 0 ?? ? ACR TI-RADS category: 1 ? Significant change in size (>/= 20% in 2 dimensions and minimal increase of 2 mm or 50% or greater increase in volume): ?? ? Change in features: ?? ? Change in ACR TI-RADS risk category: n/a 2.? Location: Right inferior. ?? ? Size: 0.4 x 0.4 x 0.4 cm, volume 0.03 mL. ?? ? Previously: 0.4 x 0.5 x 0.4 cm, volume 0.04 mL. ?? ? Nodule characteristics: ?? ? Composition: Cystic(0). ?? ? ACR TI-RADS total points: 0 ?? ? ACR TI-RADS category: 1 ? Significant change in size (>/= 20% in 2 dimensions and minimal increase of 2 mm or 50% or greater increase in volume): ?? ? Change in features: ?? ? Change in ACR TI-RADS risk category: n/a 3.? Location: Right inferior. ?? ? Size: 0.4 x 0.4 x 0.2 cm, volume 0.03 mL. ?? ? Previously: 0.3 x 0.3 x 0.3 cm, volume 0.01 mL. ?? ? Nodule characteristics: ?? ? Composition: Cystic(0). ?? ? ACR TI-RADS total points: 0 ?? ? ACR TI-RADS category: 1 ? Significant change in size (>/= 20% in 2 dimensions and minimal increase of 2 mm or 50% or greater increase in volume): ?? ? Change in features: ?? ? Change in ACR TI-RADS risk category: n/a 4.? Location: Left mid ?? ? Size: 0.4 x 0.4 x 0.3 cm, volume 0.03 mL. ?? ? Previously: 1.2 x 0.6 x 1.0 cm, volume 0.04 mL. ?? ? Nodule characteristics: ?? ? Composition: Cystic(0). ?? ? ACR TI-RADS total points: 0 ?? ? ACR TI-RADS category: 1 ? Significant change in size (>/= 20% in 2 dimensions and minimal increase of 2 mm or 50% or greater increase in volume): ?? ? Change in features: ?? ? Change in ACR TI-RADS risk category: n/a 5.? Location: Left superior. ?? ? Size: 0.3 x 0.3 x 0.2 cm, volume 0.009 mL. ?? ? Previously: n/a. ?? ? Nodule characteristics: ?? ? Composition: Cystic(0). ?? ? ACR TI-RADS total points: 0 ?? ? ACR TI-RADS category: 1 ?? NODES: No lymphadenopathy is seen in the tissue surrounding the thyroid gland. CT Abdomen: 03/09/2021 FINDINGS: LUNG BASES: Unremarkable? ? LIVER, GALLBLADDER, AND BILIARY TREE: There is a small 5 mm low-attenuation lesion in the right lobe the liver axial image 40 series 6. This is difficult to characterize due to small size. The liver is otherwise unremarkable. The gallbladder is unremarkable. There is no biliary duct dilatation. PANCREAS: Unremarkable? SPLEEN: Unremarkable? ADRENAL GLANDS AND KIDNEYS: Unremarkable BOWEL LOOPS: Unremarkable? LYMPH NODES: Normal. VASCULAR: Unremarkable. BONES: Unremarkable? CT/CT abdomen wo/w con IMPRESSION: Normal-appearing adrenal glands. Small 5 mm low-attenuation lesion in the liver. This is difficult to characterize due to small size.? Labs: Laboratory Tests 06/01/21 08/30/21 10/10/21 08:50 07:29 07:21 Sodium Potassium Creatinine Estimated GFR Hemoglobin A1c % LDL Cholesterol, C alc 84 25-OH Vitamin D To kapil TSH Free T4 Estradiol Ultra MSMS FSH Luteinizing Hormon e Prolactin Total Testosterone 21 Fr Testosterone Di vane 1.2 Sex Hormone Bind G lob 161 H Androstenedione DHEA Sulfate 71 Beta HCG, Quant Random Cortisol 17-Hydroxyprogeste hiwot 39 10/10/21 01/06/22 01/06/22 07:21 14:42 14:42 Sodium 143 Potassium 3.6 Creatinine 0.73 Estimated GFR > 60 Hemoglobin A1c % 5.1 LDL Cholesterol, C alc 25-OH Vitamin D To kapil 25.1 15.2 TSH 0.45 0.61 Free T4 1.10 1.12 Estradiol Ultra LC MSMS FSH Luteinizing Hormon e Prolactin Total Testosterone Fr Testosterone Di vane Sex Hormone Bind G lob Androstenedione DHEA Sulfate Beta HCG, Quant < 2 Random Cortisol 17-Hydroxyprogeste hiwot 01/06/22 01/06/22 14:42 14:42 Sodium Potassium Creatinine Estimated GFR Hemoglobin A1c % LDL Cholesterol, C alc 25-OH Vitamin D To kapil TSH Free T4 Estradiol Ultra LC MSMS 22 FSH 7.1 Luteinizing Hormon e 6.5 Prolactin 8.8 Total Testosterone 20 Fr Testosterone Di vane 2.8 Sex Hormone Bind G lob 27 Androstenedione 65 DHEA Sulfate 82 Beta HCG, Quant Random Cortisol 7.3 17-Hydroxyprogeste hiwot 26 17-0 HP levels were repeated and were <200. There is continued hair growth. Seeing patch worker. Took Ozempic but doesn't want it anymore . Not getting menses . Had normalized with BCP then became abnormal. No plans for . Had tubal ligation ON LICENSE OF [facility] Medical History (Updated 07/19/22 @ 09:22 by Amina Koenig DO) Metabolic syndrome Impaired glucose tolerance Liver mass Hyperandrogenism Vitamin D deficiency Hirsutism Non-toxic multinodular goiter Surgical History Hx of bladder repair surgery History of tonsillectomy and adenoidectomy Hx of tubal ligation Family History Mother Hypertension Depression Diabetes Heart murmur Father Hyperlipidemia Brother No problems noted. Brother No problems noted. Sister No problems noted. 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 She was taking a control pill. Workup for other causes including adrenal, ovarian tumor, CaH was negative Plan is to talk to her wildlife veterinarian about resuming the control pill. Will also have the patient talk to her primary care provider about sending her for sleep study. We also talked about the possible use of spironolactone in the future and I will prescribe Zepbound which may help break the insulin resistance and help with the PCOS. Medications: New tirzepatide (weight loss) (Zepbound) 2.5 mg (0.5 mL) subcut QWEEK 4 weeks 2 mL 5RF tirzepatide (weight loss) (Zepbound) 2.5 mg (0.5 mL) subcut QWEEK 4 weeks 2 mL 0RF Coding Level of Care Code Est Pt Level 3 (98465) Diagnoses Hyperandrogenism E28.8
[2023-04-22 14:33] VITALS: BP 120/76; PULSE 98; BMI 35.1
== END 2023-04-22 15:18 | disposition home or self-care (01) ==
PROVIDERS: PCP Nurse Practitioner Family; Visit Provider Internal Medicine Endocrinology, Diabetes & Metabolism
DX: E28.8 Other ovarian dysfunction (principal)
CPT/HCPCS: 99213

== ENCOUNTER → 2023-04-22 14:23 | Outpatient (BNVA) | payer BC, SELFPAY | PROVIDERS: PCP Nurse Practitioner Family; Visit Provider Internal Medicine Endocrinology, Diabetes & Metabolism ==

== ENCOUNTER 2023-08-21 08:08 | Outpatient (AMB) | payer BC, SELFPAY ==
[2023-08-21 08:09] VITALS: BP 130/82; PULSE 72; BMI 36.1
--- NOTE | 2023-08-21 08:09 | A.OFFVIS_ITS ---
Vital Signs 08/21/23 08:09 Height 5 ft 4 in Weight 210 lb 1.608 oz BMI 36.1 BP 130/82 Blood Pressure Location Lt brachial Position Sitting Pulse 72 Pulse Source Pulse Oximeter Intake Visit Reasons: PCOS-CONFIRMED Intake Note: Patient present today for PCOS follow up visit. 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 She was previously followed by Dr. Jean and underwent a partial workup. She was ruled out for kayli's disease with a normal 1 mg overnight DSST. Her 17OHP was slightly elevated at >200. She has not had a stim test to rule out NCCAH. She was scheduled for this but it was completed incorrectly, solely as a cosyntropin stim test for cortisol, which was WNL. After her initial visit with mi we repeated a full biochemical panel. This revealed elevated both free and total testosterone, and a boerline 17OHP level of 161. She completed another 1 mg overnight DSST which was WNL, ruling out kayli's disease. She had a CT of the abdomen which revealed a 5 mm lesion within the liver, but the adrenal glands appeared WNL. She also had an US of the ovaries, which revealed multiple bilateral follicles, in a picture consistent with PCOS. She had a 2 hour OGTT which revealed prediabetes. She was started on Metformin, but was unable to tolerate this at 500 mg PO BID of the XR tab, due to GI distress. She was switched Ozempic and is currently using 0.5 mg once a week. She does report significant reduction in weight. She saw her DRAPERY ESTIMATOR and was started on OCP ALYSA, which she reports has normalized her menses. She then stopped this in order to repeat her labs and did not resume this. Menarche was age 15. Menses have been irregular since the of her second son, coming often twice within a 30 day period. Weight gain: Does complain of weight gain. Hirsutism/hyperandrogenism: Complains of hirsutism of the face and areolas. Trying to conceive/clomiphene: Has 2 children and had no difficulty conceiving. 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 TSH has remained WNL off any LT4. She was found to have low Vitamin D. She has completed high dose replacement and remains on Vitamin D 2000 IU daily now. Thyroid US: 08/22/2020 Right Thyroid Lobe: 6.3 x 2.3 x 2.3 cm, volume 17.3 mL. Previously 4.8 x 2.1 x 2.3 cm, volume 12.1 mL. Parenchyma: The gland echotexture is heterogeneous. Thyroid vascularity is normal. Left Thyroid Lobe: 6.0 x 1.7 x 2.3 cm, volume 12.1 mL. Previously 5.3 x 1.9 x 2.0 cm, volume 10.3 mL. Parenchyma: The gland echotexture is heterogeneous. Thyroid vascularity is normal. Isthmus: 0.4 cm in maximum AP dimension. Previously 0.6 cm. Estimated total number of nodules greater than or equal to 1 cm: 0. Appliance Service Supervisor nodules are described as follows: 1.? Location: Right inferior. ?? ? Size: 0.5 x 0.4 x 0.3 cm, volume 0.03 mL. ?? ? Previously: 0.5 x 0.5 x 0.4 cm, volume 0.05 mL. ?? ? Nodule characteristics: ?? ? Composition: Cystic(0). ?? ? ACR TI-RADS total points: 0 ?? ? ACR TI-RADS category: 1 ? Significant change in size (>/= 20% in 2 dimensions and minimal increase of 2 mm or 50% or greater increase in volume): ?? ? Change in features: ?? ? Change in ACR TI-RADS risk category: n/a 2.? Location: Right inferior. ?? ? Size: 0.4 x 0.4 x 0.4 cm, volume 0.03 mL. ?? ? Previously: 0.4 x 0.5 x 0.4 cm, volume 0.04 mL. ?? ? Nodule characteristics: ?? ? Composition: Cystic(0). ?? ? ACR TI-RADS total points: 0 ?? ? ACR TI-RADS category: 1 ? Significant change in size (>/= 20% in 2 dimensions and minimal increase of 2 mm or 50% or greater increase in volume): ?? ? Change in features: ?? ? Change in ACR TI-RADS risk category: n/a 3.? Location: Right inferior. ?? ? Size: 0.4 x 0.4 x 0.2 cm, volume 0.03 mL. ?? ? Previously: 0.3 x 0.3 x 0.3 cm, volume 0.01 mL. ?? ? Nodule characteristics: ?? ? Composition: Cystic(0). ?? ? ACR TI-RADS total points: 0 ?? ? ACR TI-RADS category: 1 ? Significant change in size (>/= 20% in 2 dimensions and minimal increase of 2 mm or 50% or greater increase in volume): ?? ? Change in features: ?? ? Change in ACR TI-RADS risk category: n/a 4.? Location: Left mid ?? ? Size: 0.4 x 0.4 x 0.3 cm, volume 0.03 mL. ?? ? Previously: 1.2 x 0.6 x 1.0 cm, volume 0.04 mL. ?? ? Nodule characteristics: ?? ? Composition: Cystic(0). ?? ? ACR TI-RADS total points: 0 ?? ? ACR TI-RADS category: 1 ? Significant change in size (>/= 20% in 2 dimensions and minimal increase of 2 mm or 50% or greater increase in volume): ?? ? Change in features: ?? ? Change in ACR TI-RADS risk category: n/a 5.? Location: Left superior. ?? ? Size: 0.3 x 0.3 x 0.2 cm, volume 0.009 mL. ?? ? Previously: n/a. ?? ? Nodule characteristics: ?? ? Composition: Cystic(0). ?? ? ACR TI-RADS total points: 0 ?? ? ACR TI-RADS category: 1 ?? NODES: No lymphadenopathy is seen in the tissue surrounding the thyroid gland. CT Abdomen: 03/09/2021 FINDINGS: LUNG BASES: Unremarkable? ? LIVER, GALLBLADDER, AND BILIARY TREE: There is a small 5 mm low-attenuation lesion in the right lobe the liver axial image 40 series 6. This is difficult to characterize due to small size. The liver is otherwise unremarkable. The gallbladder is unremarkable. There is no biliary duct dilatation. PANCREAS: Unremarkable? SPLEEN: Unremarkable? ADRENAL GLANDS AND KIDNEYS: Unremarkable BOWEL LOOPS: Unremarkable? LYMPH NODES: Normal. VASCULAR: Unremarkable. BONES: Unremarkable? CT/CT abdomen wo/w con IMPRESSION: Normal-appearing adrenal glands. Small 5 mm low-attenuation lesion in the liver. This is difficult to characterize due to small size.? Labs: Laboratory Tests 06/01/21 08/30/21 10/10/21 08:50 07:29 07:21 Sodium Potassium Creatinine Estimated GFR Hemoglobin A1c % LDL Cholesterol, Calc 84 25-OH Vitamin D Total TSH Free T4 Estradiol Ultra LCMSMS FSH Luteinizing Hormone Prolactin Total Testosterone 21 Fr Testosterone Dialys 1.2 Sex Hormone Bind Glob 161 H Androstenedione DHEA Sulfate 71 Beta HCG, Quant Random Cortisol 17-Hydroxyprogesterone 39 10/10/21 01/06/22 01/06/22 07:21 14:42 14:42 Sodium 143 Potassium 3.6 Creatinine 0.73 Estimated GFR > 60 Hemoglobin A1c % 5.1 LDL Cholesterol, Calc 25-OH Vitamin D Total 25.1 15.2 TSH 0.45 0.61 Free T4 1.10 1.12 Estradiol Ultra LCMSMS FSH Luteinizing Hormone Prolactin Total Testosterone Fr Testosterone Dialys Sex Hormone Bind Glob Androstenedione DHEA Sulfate Beta HCG, Quant < 2 Random Cortisol 17-Hydroxyprogesterone 01/06/22 01/06/22 14:42 14:42 Sodium Potassium Creatinine Estimated GFR Hemoglobin A1c % LDL Cholesterol, Calc 25-OH Vitamin D Total TSH Free T4 Estradiol Ultra LCMSMS 22 FSH 7.1 Luteinizing Hormone 6.5 Prolactin 8.8 Total Testosterone 20 Fr Testosterone Dialys 2.8 Sex Hormone Bind Glob 27 Androstenedione 65 DHEA Sulfate 82 Beta HCG, Quant Random Cortisol 7.3 17-Hydroxyprogesterone 26 17-0 HP levels were repeated and were <200. There is continued hair growth. Seeing bolt man. On Zepbound . Not getting menses . Had normalized with BCP then became abnormal. No plans for . Had tubal ligation . Was placed on control pill. Menses are nl [facility] Medical History Metabolic syndrome Impaired glucose tolerance Liver mass Hyperandrogenism Vitamin D deficiency Hirsutism Non-toxic multinodular goiter Surgical History Hx of bladder repair surgery History of tonsillectomy and adenoidectomy Hx of tubal ligation Family History Mother Hypertension Depression Diabetes Heart murmur Father Hyperlipidemia Brother No problems noted. Brother No problems noted. Sister No problems noted. 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 There are no palpable thyroid nodules Assessment & Plan Assessment & Plan (1) Hyperandrogenism: Code(s): E28.8 - Other ovarian dysfunction Category: Medical Plan: This is a 43-year-old female with a history of polycystic ovarian syndrome. She was taking a control pill. Workup for other causes including adrenal, ovarian tumor, CaH was negative Plan is to start spironolactone 75 mg once a day. Went over side effects of spironolactone including but not limited to gastrointestinal side effects. Will check basic metabolic panel in 10 days. Continue control pill. Patient warned not to get on spironolactone the dangers of doing so to the fetus (2) Thyroid nodule: Code(s): E04.1 - Nontoxic single thyroid nodule Category: Medical Plan: History of multinodular goiter with subcentimeter nodules. Nodules are not warranted follow-up on ultrasound but patient feels more comfortable having repeat ultrasound Will obtain repeat thyroid ultrasound Orders: Orders Basic Metabolic Panel 10 Days E28.8 - Other ovarian dysfunction US thyroid Today E04.2 - Nontoxic multinodular goiter Medications: New tirzepatide (weight loss) (Zepbound) 5 mg (0.5 mL) subcut QWEEK 2 mL 5RF spironolactone (Aldactone) 75 mg (1.5 x 50 mg) PO DAILY 45 tabs 5RF Discontinued semaglutide (weight loss) (Genaro) administer weeks 1 through 4 of therapy Discontinued Reason: Doctor's Order 0.25 mg (0.5 mL) subcut QWEEK 2 mL 5RF Coding Level of Care Code Est Pt Level 3 (89332) Diagnoses Hyperandrogenism E28.8 Thyroid nodule E04.1
== END 2023-08-21 08:57 | disposition home or self-care (01) ==
PROVIDERS: PCP Nurse Practitioner Family; Visit Provider Internal Medicine Endocrinology, Diabetes & Metabolism
DX: E28.8 Other ovarian dysfunction (principal); E04.1 Nontoxic single thyroid nodule
CPT/HCPCS: 99213

== ENCOUNTER → 2023-08-21 08:08 | Outpatient (BNVA) | payer BC, SELFPAY | PROVIDERS: PCP Nurse Practitioner Family; Visit Provider Internal Medicine Endocrinology, Diabetes & Metabolism ==

== ENCOUNTER 2023-08-29 10:27 | Outpatient (REF) | payer BC, SELFPAY ==
--- NOTE | ~2023-08-29 | US_ITS ---
EXAMINATION: US THYROID CLINICAL INFORMATION: Nontoxic multinodular goiter. COMPARISON: Thyroid ultrasound 08/22/2020 and 10/05/2016. TECHNIQUE: Linear transducer grayscale and color Doppler examination with attention to the region of the thyroid. FINDINGS: SIZE: Measurements of the thyroid lobes and nodules are given in sagittal, anteroposterior and transverse dimensions respectively. Right Thyroid Lobe: 6.1 x 2.2 x 3.2 cm, volume 22.1 mL. Previously 6.3 x 2.3 x 2.3 cm, volume 17.3 mL. Parenchyma: The gland echotexture is homogeneous. Thyroid vascularity is normal. Left Thyroid Lobe: 6.2 x 1.4 x 2.2 cm, volume 10.1 mL. Previously 6.0 x 1.7 x 2.3 cm, volume 12.0 mL. Parenchyma: The gland echotexture is homogeneous. Thyroid vascularity is normal. Isthmus: 0.6 cm in maximum AP dimension. Previously 0.4 cm. Estimated total number of nodules greater than or equal to 1 cm: 0. 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 Location: Right medial lower pole. Size: 0.7 x 0.3 x 0.6 cm, volume 0.07 mL. Previously: 0.4 x 0.4 x 0.2 cm, volume 0.03 mL. Nodule characteristics: Composition: Cystic(0). ACR TI-RADS total points: 0 Previous: 0 ACR TI-RADS category: 1 Previous: 1 Significant change in size (>/= 20% in 2 dimensions and minimal increase of 2 mm or 50% or greater increase in volume): Yes Change in features: No Change in ACR TI-RADS risk category: No 2. Location: Right lateral lower pole. Size: 0.8 x 0.5 x 0.7 cm, volume 0.2 mL. Previously: 0.4 x 0.4 x 0.4 cm, volume 0.03 mL. Nodule characteristics: Composition: Cystic(0). ACR TI-RADS total points: 0 Previous: 0 ACR TI-RADS category: 1 Previous: 1 Significant change in size (>/= 20% in 2 dimensions and minimal increase of 2 mm or 50% or greater increase in volume): Yes Change in features: No Change in ACR TI-RADS risk category: No 3. Location: Right lateral lower pole. Size: 0.6 x 0.5 x 0.7 cm, volume 0.1 mL. Previously: 0.5 x 0.4 x 0.3 cm, volume 0.03 mL. Nodule characteristics: Composition: Cystic(0). ACR TI-RADS total points: 0 Previous: 0 ACR TI-RADS category: 1 Previous: 1 Significant change in size (>/= 20% in 2 dimensions and minimal increase of 2 mm or 50% or greater increase in volume): Negative Change in features: No Change in ACR TI-RADS risk category: No 4. Location: Right lower pole. Size: 0.5 x 0.4 x 0.4 cm, volume 0.04 mL. Previously: Not documented. Nodule characteristics: Composition: Cystic(0). ACR TI-RADS total points: 0 ACR TI-RADS category: 1 NODES: No lymphadenopathy is seen in the tissue surrounding the thyroid gland. US/US thyroid IMPRESSION: 1. There is an asymmetric goiter, right lobe greater than left. 2. There are multiple right thyroid lobe lower pole cystic lesions, for which no specific imaging follow-up is recommended. No solid nodule is seen. 3. There is no alteration of thyroid parenchymal echotexture or vascularity. ACR TI-RADS RECOMMENDATION REFERENCE: Ultrasound-guided fine-needle aspiration, follow up ultrasound, no further followup. * TR1 (0 point) and TR2 (2 points): No FNA or followup * TR3 (3 points): FNA if more than or equal to 2.5 cm in maximum dimension, follow up ultrasound in 1, 3 and 5 years if 1.5 to 2.4 cm in maximum dimension. * TR4 (4-6 points): FNA if more than or equal to 1.5 cm in maximum dimension, follow up ultrasound in 1, 2, 3 and 5 years if 1 to 1.4 cm in maximum dimension. * TR5 (more than or equal to 7 points): FNA if more than or equal to 1 cm in maximum dimension, follow up ultrasound every year for 5 years if 0.5 to 0.9 cm in maximum dimension. * TR3, TR4 or TR5 nodules that are below the size threshold for follow up receive no followup.
== END 2023-08-29 10:28 | disposition home or self-care (01) ==
LOC: HO.US 10:27
PROVIDERS: PCP Internal Medicine; Visit Provider Internal Medicine Endocrinology, Diabetes & Metabolism
DX: E04.2 Nontoxic multinodular goiter (principal)
CPT/HCPCS: 76536

== ENCOUNTER 2023-09-21 08:51 | Outpatient (REF) | payer BC, SELFPAY ==
[2023-09-21 11:24] LABS: Anion Gap 14 (12-20); Blood Urea Nitrogen 8 mg/dL (9-16); Calcium 9.3 mg/dL (8.4-10.2); Carbon Dioxide 22 mmol/L (22-29); Chloride 107 mmol/L (96-108); Estimated Glomerular Filt Rate > 60; Glucose Random 118 mg/dL (60-115); Potassium 4.1 mmol/L (3.3-5.1); Sodium 139 mmol/L (135-145)
== END 2023-09-21 08:52 | disposition home or self-care (01) ==
LOC: HO.HMGCLDS 08:51
PROVIDERS: PCP Internal Medicine; Visit Provider Internal Medicine Endocrinology, Diabetes & Metabolism
DX: E28.8 Other ovarian dysfunction (principal)
CPT/HCPCS: 36415; 80048